=== PATIENT | male | born 1965 | race Caucasian/White ===

== ENCOUNTER 2017-04-11 05:27 | Inpatient (IN) | payer BC ==
[2017-04-10 12:17] VITALS: BMI 27.0
[2017-04-11] MEDS ORDERED: CEFAZOLIN/Water 2 GM/20 ML SYRINGE ONE (06:14)
[2017-04-11] MEDS ORDERED: Albumin 5% 500 ML ONE (06:31)
[2017-04-11 06:47] LABS: Hemoglobin 14.9 g/dL (14.0-18.0); Mean Corpuscular HGB CONC 33.3 g/dL (32.0-36.0); Mean Corpuscular Hemoglobin 30.1 pg (27.0-31.0); Mean Corpuscular Volume 90.3 fl (80.0-94.0); Mean Platelet Volume 7.3 fL (7.4-10.4); Platelet Count 309 thou/uL (130-400); RBC Distribution Width 12.2 % (11.5-14.5); Red Blood Cell (RBC) Count 4.96 mill/uL (4.70-6.10); White Blood Cell (WBC) Count 7.6 thou/uL (4.8-10.8)
[2017-04-11] MEDS ORDERED: Heparin 10,000 UNITS/1 ML VIAL 30,000 UNITS in Sodium Chloride 0.9% 1,000 ML FS SCH (07:00)
[2017-04-11] MEDS ORDERED: Fentanyl 250 MCG/5 ML VIAL ONE (07:13)
[2017-04-11] MEDS ORDERED: Midazolam HCl 5 mg/5 ml Vial ONE (07:13)
[2017-04-11] MEDS ORDERED: Nitroglycerin 50 MG/250 ML BOT 250 ML ONE (07:14)
[2017-04-11] MEDS ORDERED: Norepinephrine 8 MG/0.9% NS 250 ML ONE (07:14)
[2017-04-11] MEDS ORDERED: Phenylephrine HCL 10 MG/ML VIAL ONE (07:14)
[2017-04-11 07:18] LABS: Anion Gap 12 mmol/L (10-20); BUN (Urea Nitrogen) 15 mg/dL (8.4-25.7); Calc. Creatinine Clearance 132 mL/min (70-130); Calcium 10.3 mg/dL (7.8-10.44); Carbon Dioxide 28 mmol/L (22-29); Chloride 103 mmol/L (98-107); Estimated GFR-MDRD Greater than 90; Glucose 98 mg/dL (70-105); Potassium 3.4 mmol/L (3.5-5.1); Sodium 140 mmol/L (136-145)
[2017-04-11] MEDS ORDERED: Rocuronium Bromide 50 MG/5 ML VIAL ONE (10:17)
[2017-04-11] MEDS ORDERED: Vecuronium 10 MG VIAL ONE (10:17)
[2017-04-11] MEDS ORDERED: Bisacodyl 10 MG SUPP PR PRN (11:53)
[2017-04-11] MEDS ORDERED: DOPamine 400 MG/D5W 250 ML 250 ML IVPB PRN (11:53)
[2017-04-11] MEDS ORDERED: Hetastarch 6% 500 ML 500 ML IVPB PRN (11:53)
[2017-04-11] MEDS ORDERED: Post-Op Insulin Drip Protocol IVPB ONE (11:53)
[2017-04-11] MEDS ORDERED: Guaifenesin DM 100-10/5 ML UDCUP PO PRN (11:53)
[2017-04-11] MEDS ORDERED: Acetaminophen 325 MG TAB PO PRN (11:53)
[2017-04-11] MEDS ORDERED: hydrALAZINE 20 MG/ML VIAL SLOW IVP PRN (11:53)
[2017-04-11] MEDS ORDERED: Bisacodyl 5 MG TAB PO PRN (11:53)
[2017-04-11] MEDS ORDERED: Sodium Chloride 0.9% 1,000 ML IV SCH (11:53)
[2017-04-11] MEDS ORDERED: Phenylephrine 10 MG/NS 250 ML 250 ML IVPB PRN (11:53)
[2017-04-11] MEDS ORDERED: niCARdipine HCl 25 MG in Sodium Chloride 0.9% 250 ML 240 ML IVPB PRN (11:53)
[2017-04-11] MEDS ORDERED: Magnesium Sulfate 5 GM in Sodium Chloride 0.9% 1,000 ML IV SCH (11:53)
[2017-04-11] MEDS ORDERED: HYDROcodone/Acetaminophen 5/325 mg Tablet PO PRN ×2 (11:53)
[2017-04-11] MEDS ORDERED: Fentanyl 100 MCG/2 ML VIAL SLOW IVP PRN (11:53)
[2017-04-11] MEDS ORDERED: Nitroglycerin 50 MG/250 ML BOT 250 ML IVPB PRN (11:53)
[2017-04-11] MEDS ORDERED: Mag-Al 1200 mg/1200 mg/30 ML UDCUP PO PRN (11:53)
[2017-04-11] MEDS ORDERED: Dextrose 5% in Water 1,000 ML IV PRN (12:05)
[2017-04-11] MEDS ORDERED: Dextrose 50% Abboject 50 ML SYRINGE SLOW IVP PRN (12:05)
--- NOTE | 2017-04-11 12:13 | OP ---
POSTOPERATIVE DIAGNOSIS: Coronary artery disease. PROCEDURE: Coronary bypass graft x5, left internal mammary artery good quality to a 2 mm LAD, separa te segment of left internal mammary artery to a 1.25 mm diseased high diagonal, saphenous vein graft to an OM1, 1.25 OM2, 1.5 RPL 2.0. SURGEONS: Phill Holcomb M.D., Glynn Silver MD, and Stevie Manzano M.D. DESCRIPTION OF PROCEDURE: After adequate anesthesia had been obtained, Dr. Silver began endovas cular vein harvest of the left greater saphenous vein. I performed a median sternotomy entering the right pleura with the saw. Left internal mammary artery was harvested and Dr. Manzano completed the en dovascular vein harvest. Following heparinization, the mammary was divided distally, passed posterio r to the thymus gland and then aorta and right atrium were cannulated. Cardiopulmonary bypass was in stituted. Aorta crossclamped and a liter of cold [place] cardioplegic solution given. Distal anast omoses were all completed with KAUFMAN to the LAD. Separate segment of KAUFMAN as a free graft to the high diagonal, saphenous vein graft to the OM1, saphenous vein graft to the OM2, and saphenous vein graft to the RPL. A true ramus branch could not be identified. Following this, crossclamp was removed an d the partial occluding clamp was placed and 3 proximal anastomoses performed on the aortic root and marked with rings. The partial occluding clamp was removed and the KAUFMAN graft to the diagonal was pl aced to the side of the OM1 graft about a 2.5 cm from the aorta. Following completion of this, matthew miranda was weaned from cardiopulmonary bypass without difficulties. Cannulas were removed and aortic can nulation site secured with a 4-0 Prolene suture. Protamine was given systemically and after obtainin g good hemostasis, mediastinal and bilateral pleural drains were placed. The sternum was then reappr oximated with #7 interrupted wire using vancomycin paste on the sternal edges, platelet rich blood, a nd platelet-poor plasma. Subcutaneous tissue and skin were closed in layers.
[2017-04-11 12:19] LABS: Actual Bicarbonate (HCO3a) 24.2 mEq/L (22-26); Base Excess (BEa) -0.9 mEq/L (0 (+/-) 2.5); Hematocrit-ABG 30.6 % (42.0-52.0); Hemoglobin (Hb) 10.6 g/dL (14.0-18.0); O2 Tension (PaO2) 210.8 mmHg (80.0-100.0); pH, Arterial 7.38 (7.35-7.45)
[2017-04-11 12:20] LABS: Calcium, Ionized 1.2 mmol/L (1.12-1.30); Puncture Site ALINE
[2017-04-11] MEDS: Ketorolac Tromethamine 30 MG/ML VIAL IVP SCH ×3 (12:27→23:40)
[2017-04-11 12:28] LABS: #Basophils 0.1 thou/uL (0.0-0.2); #Eosinphils 0.3 thou/uL (0.0-0.7); #Lymphocytes 2.3 thou/uL (1.20-3.40); #Monocytes 1.2 thou/uL (0.11-0.59); #Neutrophils 11.9 thou/uL (1.40-6.50); %Basophils 0.4 % (0.0-1.0); %Eosinophils 2.2 % (0.0-10.0); %Lymphocytes 14.3 % (21.0-51.0); %Monocytes 7.3 % (0.0-10.0); %Neutrophils 75.8 % (42.0-75.0); Hemoglobin 10.9 g/dL (14.0-18.0); Mean Corpuscular HGB CONC 33.5 g/dL (32.0-36.0); Mean Corpuscular Hemoglobin 30.5 pg (27.0-31.0); Mean Platelet Volume 7.2 fL (7.4-10.4); Platelet Count 211 thou/uL (130-400); RBC Distribution Width 12.1 % (11.5-14.5); Red Blood Cell (RBC) Count 3.59 mill/uL (4.70-6.10); White Blood Cell (WBC) Count 15.7 thou/uL (4.8-10.8)
[2017-04-11 12:31] LABS: INR-International Normal Ratio 1.3; PTT 34.3 SEC (22.9-36.1); Prothrombin Time 16.6 SEC (12.0-14.7)
[2017-04-11] MEDS: Ondansetron HCl/PF 4 MG/2 ML Vial IVP PRN ×2 (12:32→20:53)
[2017-04-11 12:52] LABS: Anion Gap 9 mmol/L (10-20); BUN (Urea Nitrogen) 12 mg/dL (8.4-25.7); Calc. Creatinine Clearance 150 mL/min (70-130); Calcium 7.9 mg/dL (7.8-10.44); Carbon Dioxide 23 mmol/L (22-29); Chloride 112 mmol/L (98-107); Estimated GFR-MDRD Greater than 90; Glucose 124 mg/dL (70-105); Potassium 3.7 mmol/L (3.5-5.1); Sodium 140 mmol/L (136-145)
[2017-04-11] MEDS: Potassium Chloride 20 MEQ/100 ML PREMIX BAG IVPB PRN ×2 (12:54→18:34)
--- NOTE | 2017-04-11 13:18 | RAD ---
AP VIEW CHEST: HISTORY: Status post open heart surgery. FINDINGS: The patient is intubated with the ET tube seen at the level of the thoracic inlet. There is post jose manuel gical change of recent CABG. There are bilateral thoracostomy tubes. No pneumothorax is evident. A right subclavian central venous catheter projects to the cavoatrial junction. The lungs are clear. The cardiomediastinal silhouette is within normal limits. IMPRESSION: Postoperative chest. POS: AUDIE
[2017-04-11] MEDS: CEFAZOLIN/Water 2 GM/20 ML SYRINGE SLOW IVP SCH ×2 (14:21→22:15)
[2017-04-11] MEDS ORDERED: Papaverine 60 MG/2 ML VIAL ONE (14:26)
[2017-04-11] MEDS ORDERED: PHENYLEPHRINE-NS 100 MCG/ML 10 ML SYRINGE ONE (14:26)
[2017-04-11] MEDS ORDERED: Heparin 30,000 units/30 ml VIAL ONE (14:26)
[2017-04-11] MEDS ORDERED: Dexamethasone 20 MG/5 ML VIAL ONE (14:26)
[2017-04-11] MEDS ORDERED: ePHEDrine/0.9% NaCl/PF SYRINGE 50 mg/10 ml ONE (14:26)
[2017-04-11] MEDS ORDERED: PROPOFOL 200 MG/20 ML VIAL ONE (14:26)
[2017-04-11] MEDS ORDERED: Thrombin 5000 UNITS/5 ML VIAL ONE (14:26)
[2017-04-11] MEDS ORDERED: Lidocaine 1% PF 5 ML VIAL ONE (14:26)
[2017-04-11] MEDS ORDERED: Esmolol 100 MG/10 ML VIAL ONE (14:26)
[2017-04-11] MEDS ORDERED: Aminocaproic Acid 5 GM/20 ML VIAL ONE (14:26)
[2017-04-11] MEDS ORDERED: Lidocaine 2% PF 100 mg/5 ml Syringe ONE (14:26)
[2017-04-11] MEDS ORDERED: Protamine Sulfate 250 MG/25 ML VIAL ONE (14:26)
[2017-04-11] MEDS ORDERED: Potassium Chloride 60 MEQ/30 ML VIAL ONE (14:26)
[2017-04-11] MEDS ORDERED: Magnesium 5 GM/10 ML VIAL ONE (14:26)
[2017-04-11] MEDS ORDERED: Sodium Bicarb 50 MEQ/50 ML VIAL ONE (14:26)
[2017-04-11] MEDS ORDERED: Cardioplegic Soln 1,000 ML BAG ONE (14:26)
[2017-04-11] MEDS ORDERED: Glycopyrrolate 0.2 MG/ML 5 ML SYRINGE ONE (14:26)
[2017-04-11] MEDS ORDERED: Calcium Chloride 1 GM/10 ML Abboject SYRINGE ONE (14:26)
[2017-04-11] MEDS ORDERED: Heparin 5,000 UNITS/ML VIAL ONE (14:26)
[2017-04-11] MEDS: Fentanyl 100 MCG/2 ML VIAL SLOW IVP PRN ×3 (15:54→22:14)
[2017-04-11] MEDS: Insulin Regular 300 UNITS/3 ML VIAL SC PRN ×2 (16:38→19:48)
[2017-04-11 17:41] LABS: Base Excess (BEa) -2.8 mEq/L (0 (+/-) 2.5); CO2 Tension 38.2 mmHg (35.0-45.0); Hematocrit-ABG 33.6 % (42.0-52.0); Hemoglobin (Hb) 11.4 g/dL (14.0-18.0); O2 Tension (PaO2) 120.8 mmHg (80.0-100.0); pH, Arterial 7.38 (7.35-7.45)
[2017-04-11 17:42] LABS: Analyzer IN Cardio OR; Calcium, Ionized 1.2 mmol/L (1.12-1.30); Puncture Site ALINE
[2017-04-11 18:11] LABS: Hemoglobin 10.9 g/dL (14.0-18.0)
[2017-04-11 18:18] LABS: Potassium 3.8 mmol/L (3.5-5.1)
[2017-04-11] MEDS ORDERED: Famotidine/PF 20 mg/2ml Vial SLOW IVP SCH (21:00)
[2017-04-12] MEDS: Fentanyl 100 MCG/2 ML VIAL SLOW IVP PRN (02:42)
[2017-04-12 04:28] LABS: #Lymphocytes 1.6 thou/uL (1.20-3.40); #Monocytes 1.5 thou/uL (0.11-0.59); #Neutrophils 10.1 thou/uL (1.40-6.50); %Basophils 0.3 % (0.0-1.0); %Eosinophils 0.2 % (0.0-10.0); %Lymphocytes 12.1 % (21.0-51.0); %Monocytes 11.3 % (0.0-10.0); %Neutrophils 76.2 % (42.0-75.0); Mean Corpuscular HGB CONC 32.9 g/dL (32.0-36.0); Mean Corpuscular Hemoglobin 30.2 pg (27.0-31.0); Mean Corpuscular Volume 91.9 fl (80.0-94.0); Mean Platelet Volume 7.5 fL (7.4-10.4); Platelet Count 233 thou/uL (130-400); RBC Distribution Width 12.4 % (11.5-14.5); Red Blood Cell (RBC) Count 3.31 mill/uL (4.70-6.10); White Blood Cell (WBC) Count 13.3 thou/uL (4.8-10.8)
[2017-04-12 04:35] LABS: Anion Gap 8 mmol/L (10-20); BUN (Urea Nitrogen) 13 mg/dL (8.4-25.7); Calc. Creatinine Clearance 160 mL/min (70-130); Calcium 7.8 mg/dL (7.8-10.44); Carbon Dioxide 25 mmol/L (22-29); Chloride 109 mmol/L (98-107); Estimated GFR-MDRD Greater than 90; Glucose 113 mg/dL (70-105); Potassium 4.1 mmol/L (3.5-5.1); Sodium 138 mmol/L (136-145)
[2017-04-12] MEDS: Ketorolac Tromethamine 30 MG/ML VIAL IVP SCH ×4 (05:09→23:31)
[2017-04-12] MEDS: CEFAZOLIN/Water 2 GM/20 ML SYRINGE SLOW IVP SCH (05:10)
[2017-04-12] MEDS: Ondansetron HCl/PF 4 MG/2 ML Vial IVP PRN (06:37)
[2017-04-12] MEDS ORDERED: Acetaminophen 325 MG TAB PO PRN (07:22)
[2017-04-12] MEDS ORDERED: Mag-Al 1200 mg/1200 mg/30 ML UDCUP PO PRN (07:22)
[2017-04-12] MEDS ORDERED: diphenhydrAMINE 25 MG CAP PO PRN (07:22)
[2017-04-12] MEDS ORDERED: Fentanyl 100 MCG/2 ML VIAL SLOW IVP PRN ×2 (07:22)
[2017-04-12] MEDS ORDERED: Bisacodyl 10 MG SUPP PR PRN (07:22)
[2017-04-12] MEDS ORDERED: Milk Of Magnesia 30 ML UDCUP PO PRN (07:22)
[2017-04-12] MEDS ORDERED: Guaifenesin DM 100-10/5 ML UDCUP PO PRN (07:22)
[2017-04-12] MEDS ORDERED: Nitroglycerin 0.4 MG TAB (25 Tab Bottle) SL PRN (07:22)
[2017-04-12] MEDS ORDERED: Mineral Oil ENEMA PR PRN ×2 (07:22→08:21)
--- NOTE | 2017-04-12 08:36 | RAD ---
PORTABLE AP CHEST RADIOGRAPH: Date: 04-12-17 History: Post open heart surgery. Comparison: 04-11-17 FINDINGS: The right subclavian central venous catheter, mediastinal drains, and bilateral thoracostomy tubes re main in place and unchanged in position. Post-surgical change related to CABG are noted. There is bib asilar atelectasis with suggestion of a tiny left pleural effusion. Cardiac silhouette is magnified b y projection. Pulmonary vasculature is within normal limits. No other interval change. IMPRESSION: 1. Bibasilar atelectasis with blunting of the left lateral costophrenic angle which also may be relat ed to atelectasis or a tiny left pleural effusion. 2. Lines and tube stable in position. 3. Post-surgical changes related to CABG. POS: OFF
[2017-04-12] MEDS: Metoprolol Tartrate 25 MG TAB PO SCH ×2 (08:47→21:22)
[2017-04-12] MEDS: Famotidine 20 MG TAB PO SCH ×2 (08:47→21:22)
[2017-04-12] MEDS: Aspirin 325 mg Enteric Coated Tablet PO SCH (08:48)
[2017-04-12] MEDS: Atorvastatin Calcium 40 MG TAB PO SCH (08:48)
[2017-04-12] MEDS ORDERED: Atorvastatin Calcium 10 MG TAB PO SCH (09:00)
[2017-04-12] MEDS ORDERED: Aspirin 325 MG TAB PO SCH (09:00)
[2017-04-12] MEDS: HYDROcodone/Acetaminophen 5/325 mg Tablet PO PRN ×2 (14:02→21:27)
[2017-04-13] MEDS: Ketorolac Tromethamine 30 MG/ML VIAL IVP SCH ×3 (06:27→17:55)
[2017-04-13] MEDS: Atorvastatin Calcium 40 MG TAB PO SCH (09:11)
[2017-04-13] MEDS: Famotidine 20 MG TAB PO SCH ×2 (09:11→21:06)
[2017-04-13] MEDS: Potassium Chloride 10 MEQ TAB PO SCH (09:11)
[2017-04-13] MEDS: Aspirin 325 mg Enteric Coated Tablet PO SCH (09:11)
[2017-04-13] MEDS: HYDROcodone/Acetaminophen 5/325 mg Tablet PO PRN ×3 (09:12→21:11)
[2017-04-13] MEDS: Furosemide 40 MG TAB PO SCH (09:12)
[2017-04-13] MEDS: Metoprolol Tartrate 25 MG TAB PO SCH ×2 (09:12→21:06)
[2017-04-13] MEDS: Ondansetron HCl/PF 4 MG/2 ML Vial IVP PRN ×2 (09:18→16:24)
--- NOTE | 2017-04-13 17:36 | EKG ---
Test Reason : POST CABG Blood Pressure : / mmHG Vent. Rate : 088 BPM Atrial Rate : 088 BPM P-R Int : 134 ms QRS Dur : 092 ms QT Int : 384 ms P-R-T Axes : 075 083 059 degrees QTc Int : 464 ms Normal sinus rhythm Normal ECG No previous ECGs available Confirmed by DR. Timothy BLUNT ([id number]) on 04/13/2017 5:35:48 PM Referred By: EDER Confirmed By:DR. Timothy BLUNT
[2017-04-14] MEDS: Ketorolac Tromethamine 30 MG/ML VIAL IVP SCH ×2 (00:05→05:49)
[2017-04-14] MEDS: Ondansetron HCl/PF 4 MG/2 ML Vial IVP PRN (04:32)
[2017-04-14] MEDS: HYDROcodone/Acetaminophen 5/325 mg Tablet PO PRN ×2 (04:32→16:19)
[2017-04-14] MEDS: Furosemide 40 MG TAB PO SCH (08:53)
[2017-04-14] MEDS: Famotidine 20 MG TAB PO SCH ×2 (08:53→20:44)
[2017-04-14] MEDS: Aspirin 325 mg Enteric Coated Tablet PO SCH (08:53)
[2017-04-14] MEDS: Potassium Chloride 10 MEQ TAB PO SCH (08:53)
[2017-04-14] MEDS: Metoprolol Tartrate 25 MG TAB PO SCH (08:53)
[2017-04-14] MEDS: Atorvastatin Calcium 40 MG TAB PO SCH (08:53)
--- NOTE | 2017-04-14 13:17 | PRG ---
DATE OF SERVICE: 04/14/2017 SUBJECTIVE: Mr. Gilbert is doing well. No chest pain or pressure noted. He is status post bypass surgery x3 days. OBJECTIVE: VITAL SIGNS: Blood pressure 144/77, pulse 82, temperature 98.3. LUNGS: Clear to auscultation. CARDIAC: Regular rate and rhythm. ABDOMEN: Soft, nontender, nondistended. EXTREMITIES: No edema. PERTINENT LABORATORY DATA: Hemoglobin 10, creatinine 0.7. IMPRESSION: 1. Coronary artery disease. 2. Status bypass surgery. RECOMMENDATIONS: 1. Continue aspirin in addition to Lipitor and low dose beta angella therapy. 2. Ambulate and incentive spirometry. 3. Home soon.
[2017-04-14] MEDS: Bisacodyl 5 MG TAB PO PRN (16:18)
[2017-04-14] MEDS ORDERED: Metoprolol Tartrate 25 MG TAB PO SCH (18:00)
[2017-04-15] MEDS: HYDROcodone/Acetaminophen 5/325 mg Tablet PO PRN (02:12)
[2017-04-15] MEDS ORDERED: Furosemide 40 MG/4 ML VIAL SLOW IVP SCH (06:00)
[2017-04-15] MEDS: Bisacodyl 5 MG TAB PO PRN ×2 (06:35→17:52)
[2017-04-15] MEDS ORDERED: Metoprolol Tartrate 25 MG TAB PO SCH (09:00)
[2017-04-15] MEDS: Potassium Chloride 10 MEQ TAB PO SCH (09:09)
[2017-04-15] MEDS: Atorvastatin Calcium 40 MG TAB PO SCH (09:10)
[2017-04-15] MEDS: Aspirin 325 mg Enteric Coated Tablet PO SCH (09:11)
[2017-04-15] MEDS: Furosemide 40 MG TAB PO SCH (09:11)
[2017-04-15] MEDS: Famotidine 20 MG TAB PO SCH ×2 (09:11→20:28)
[2017-04-15] MEDS ORDERED: Amiodarone In Dextrose 200 ML IVPB SCH (10:00)
[2017-04-15] MEDS ORDERED: Amiodarone HCl 150 MG, Admixture Fee 1 EACH in Dextrose 5% in Water 100 ML IVPB SCH (10:30)
[2017-04-15 10:51] LABS: ALT (SGPT) 34 U/L (8-55); AST (SGOT) 25 U/L (5-34); Albumin 3.6 g/dL (3.5-5.0); Alkaline Phosphatase 52 U/L (40-150); Bilirubin, Direct 0.3 mg/dL (0.1-0.3); Bilirubin, Total 0.6 mg/dL (0.2-1.2); Magnesium 1.7 mg/dL (1.6-2.6); Potassium 3.2 mmol/L (3.5-5.1); Protein, Total 6.7 g/dL (6.0-8.3)
[2017-04-15] MEDS: Potassium Chloride 20 MEQ TAB PO SCH (17:52)
[2017-04-15] MEDS: Amiodarone 200 MG TAB PO SCH (20:28)
[2017-04-15] MEDS: Metoprolol Tartrate 50 MG TAB PO SCH (20:28)
[2017-04-16 05:49] LABS: Anion Gap 12 mmol/L (10-20); BUN (Urea Nitrogen) 12 mg/dL (8.4-25.7); Calc. Creatinine Clearance 136 mL/min (70-130); Calcium 9.3 mg/dL (7.8-10.44); Carbon Dioxide 28 mmol/L (22-29); Chloride 102 mmol/L (98-107); Estimated GFR-MDRD Greater than 90; Glucose 109 mg/dL (70-105); Potassium 4.1 mmol/L (3.5-5.1); Sodium 138 mmol/L (136-145)
[2017-04-16] MEDS: Amiodarone 200 MG TAB PO SCH (09:23)
[2017-04-16] MEDS: Atorvastatin Calcium 40 MG TAB PO SCH (09:24)
[2017-04-16] MEDS: Aspirin 325 mg Enteric Coated Tablet PO SCH (09:25)
[2017-04-16] MEDS: Metoprolol Tartrate 50 MG TAB PO SCH (09:25)
[2017-04-16] MEDS: Famotidine 20 MG TAB PO SCH (09:25)
[2017-04-16] MEDS: Potassium Chloride 20 MEQ TAB PO SCH (09:26)
[2017-04-16] MEDS: Furosemide 40 MG TAB PO SCH (09:26)
[2017-04-16] MEDS: Potassium Chloride 10 MEQ TAB PO SCH (09:26)
[2017-04-16] MEDS: HYDROcodone/Acetaminophen 5/325 mg Tablet PO PRN (11:26)
[2017-04-16 12:52] VITALS: TEMP 98.9
[2017-04-16 12:53] VITALS: BP 116/98
--- NOTE | 2017-04-16 14:11 | DIS ---
DATE OF ADMISSION: 04/11/2017 DATE OF DISCHARGE: 04/16/2017 PRINCIPAL DIAGNOSIS: Coronary artery disease. SECONDARY DIAGNOSES: Atrial fibrillation and hypertension. PROCEDURES PERFORMED: Coronary artery bypass grafting x5 with left internal mammary artery to the le ft anterior descending and a left internal mammary artery to diagonal, reverse saphenous vein grafts to the OM1, OM2 and the posterolateral branch of the right coronary on 04/11/2017. HISTORY OF PRESENT ILLNESS AND HOSPITAL COURSE: The patient is a 51-year-old former smoker with exer tional chest pain and dyspnea. An abnormal stress test led to cardiac catheterization, which demonst rated severe 3-vessel coronary disease. He was admitted electively for coronary revascularization. He was extubated the day of surgery and transferred to the [facility] on postoperative day #1. Beta blocke rs were reinstituted and gradually increased. On the morning of postoperative day #4, he went into a trial fibrillation with heart rates in the 150-160 range without any significant drop in his blood pr essure. He fairly easily converted back to sinus rhythm on the amiodarone and remained in sinus rhyt hm. He is now being discharged home on postoperative day #5 with an increase in his beta blockade fr om his preoperative dose of Toprol 25 mg a day to Lopressor 50 mg b.i.d. and amiodarone 200 mg b.i.d. We are still holding his losartan and hydrochlorothiazide. He is to resume his baby aspirin. His Lipitor has been increased to 40 mg a day. I have written him a prescription for Vicodin as needed f or pain. Dr. Holcomb will see him in the office in roughly 1-2 weeks.
[2017-04-16] MEDS ORDERED: Amiodarone 200 MG TAB PO SCH (21:00)
[2017-04-26 11:57] LABS: CO2 Tension 43.7 mmHg (35.0-45.0); pH, Arterial 7.38 (7.35-7.45)
[2017-04-26 11:58] LABS: Analyzer IN Cardio OR; Base Excess (BEa) -0.3 mEq/L (0 (+/-) 2.5); Calcium, Ionized 1.2 mmol/L (1.12-1.30); Hematocrit-ABG 38.4 % (42.0-52.0); Hemoglobin (Hb) 12.6 g/dL (14.0-18.0); O2 Tension (PaO2) 502.5 mmHg (80.0-100.0)
[2017-04-26 11:59] LABS: Puncture Site ALINE
[2017-04-26 11:59] LABS: Actual Bicarbonate (HCO3a) 27.7 mEq/L (22-26); Base Excess (BEa) 2.4 mEq/L (0 (+/-) 2.5); CO2 Tension 46.4 mmHg (35.0-45.0); Hematocrit-ABG 38.6 % (42.0-52.0); Hemoglobin (Hb) 9.8 g/dL (14.0-18.0); O2 Tension (PaO2) 237.9 mmHg (80.0-100.0); pH, Arterial 7.39 (7.35-7.45)
[2017-04-26 12:00] LABS: Analyzer IN Cardio OR; Puncture Site ALINE
[2017-04-26 12:00] LABS: Actual Bicarbonate (HCO3v) 28 mEq/L (22-26); Analyzer IN Cardio OR; Base Excess 2.2 mEq/L (0 (+/- 2.5)); Hematocrit-VBG 28.2 % (39-50); Hemoglobin (Hb) 9.6 g/dL (13.1-17.2); pH (venous) 7.36 (7.35-7.45)
[2017-04-26 12:01] LABS: Calcium, Ionized 1.04 mmol/L (1.16-1.32); Chloride (ABG LAB) 102 mmol/L (98-106); Potassium - ABG Lab 3.8 mmol/L (3.70-5.30); Sodium 139.5 mmol/L (133-146)
[2017-04-26 12:01] LABS: Actual Bicarbonate (HCO3a) 25.5 mEq/L (22-26); CO2 Tension 44.9 mmHg (35.0-45.0); Hematocrit-ABG 28.6 % (42.0-52.0); Hemoglobin (Hb) 9.9 g/dL (14.0-18.0); O2 Tension (PaO2) 319.7 mmHg (80.0-100.0); pH, Arterial 7.37 (7.35-7.45)
[2017-04-26 12:02] LABS: Analyzer IN Cardio OR; Calcium, Ionized 1.1 mmol/L (1.12-1.30); Puncture Site ALINE
[2017-05-16 15:28] LABS: Actual Bicarbonate (HCO3v) 28 mEq/L (22-26); Analyzer IN Cardio OR; pH (venous) 7.36 (7.35-7.45)
[2017-05-16 15:29] LABS: Base Excess 2.2 mEq/L (0 (+/- 2.5)); Calcium, Ionized 1.04 mmol/L (1.16-1.32); Chloride (ABG LAB) 102 mmol/L (98-106); Hematocrit-VBG 28.2 % (39-50); Hemoglobin (Hb) 9.6 g/dL (13.1-17.2); Potassium - ABG Lab 3.8 mmol/L (3.70-5.30); Sodium 139.5 mmol/L (133-146)
[2017-05-16 15:29] LABS: pH, Arterial 7.37 (7.35-7.45)
[2017-05-16 15:30] LABS: Actual Bicarbonate (HCO3a) 25.5 mEq/L (22-26); CO2 Tension 44.9 mmHg (35.0-45.0); O2 Tension (PaO2) 319.7 mmHg (80.0-100.0)
[2017-05-16 15:33] LABS: Hematocrit-ABG 28.6 % (42.0-52.0); Hemoglobin (Hb) 9.9 g/dL (14.0-18.0)
[2017-05-16 15:34] LABS: Analyzer IN Cardio OR; Calcium, Ionized 1.1 mmol/L (1.12-1.30); Puncture Site ALINE
== END 2017-04-16 12:30 | disposition home or self-care (01) | DRG 236 ==
LOC: SURG A 05:27 → CCU 09:47 → 2NO 04-12 15:07
PROVIDERS: ADMIT Thoracic Surgery (Cardiothoracic Vascular Surgery); ATTEND Thoracic Surgery (Cardiothoracic Vascular Surgery)
PROC: 0211099 Bypass Coronary Artery, Two Arteries from Left Internal Mammary with Autologous Venous Tissue, Open Approach (ICD-10-PCS; principal; 2017-04-11)
PROC: 021209W Bypass Coronary Artery, Three Arteries from Aorta with Autologous Venous Tissue, Open Approach (ICD-10-PCS; 2017-04-11)
PROC: 06BQ3ZZ Excision of Left Saphenous Vein, Percutaneous Approach (ICD-10-PCS; 2017-04-11)
PROC: 5A1221Z Performance of Cardiac Output, Continuous (ICD-10-PCS; 2017-04-11)
DX: I25.10 Atherosclerotic heart disease of native coronary artery without angina pectoris (principal); I48.91 Unspecified atrial fibrillation; I97.89 Other postprocedural complications and disorders of the circulatory system, not elsewhere classified; I10 Essential (primary) hypertension; Z87.891 Personal history of nicotine dependence; Y83.2 Surgical operation with anastomosis, bypass or graft as the cause of abnormal reaction of the patient, or of later complication, without mention of misadventure at the time of the procedure; Y71.3 Surgical instruments, materials and cardiovascular devices (including sutures) associated with adverse incidents; E78.5 Hyperlipidemia, unspecified
CPT/HCPCS: 36415; 36416; 36430; 71045; 80048; 80076; 82805; 83735; 84132; 84443; 85025; 85027; 85610; 85730; 86850; 86900; 86901; 93005; 93010; 93798; 94002; 94150; A4216; J0282; J1100; J1642; J1644; J1815; J1885; J1940; J2001; J2250; J2270; J2370; J2405; J2440; J2704; J2720; J3010; J3370; J3475; J3480; J7050; J7070; P9045; S0017; S0028